=== PATIENT | female | born 1930 | race Caucasian/White ===

== ENCOUNTER 2017-11-24 13:00 | Inpatient (IN) | payer OTHER ==
[~2017-11-24] VITALS: Ht 149.9 cm; Wt 43.5 kg
[2017-11-24 13:05] VITALS: BP 112/68
--- NOTE | 2017-11-24 13:05 | NUR ---
87Y/F BIBA FROM [facility] FOR SUDDEN ONSET OF GENERAL WEAKNESS BEING TREATED FOR A UTI NOT IMPROVING. AAOX4; VSS; BEDRAILS UP X 1, BED DOWN, ER MD AWARE OF PT ATATUS.
[2017-11-24] MEDS ORDERED: VITD1000 PO (13:25)
[2017-11-24] MEDS ORDERED: MULT-1868 PO (13:25)
[2017-11-24] MEDS ORDERED: ONDA4TAB PO (13:25)
[2017-11-24] MEDS ORDERED: DOCU-299 PO (13:25)
[2017-11-24] MEDS ORDERED: GLU1I PO (13:25)
[2017-11-24] MEDS ORDERED: OMEP20TC12 PO (13:25)
[2017-11-24] MEDS ORDERED: METF850T PO (13:25)
[2017-11-24] MEDS ORDERED: TRAV5SOL OP (13:25)
[2017-11-24] MEDS ORDERED: ACET-2619 PO (13:25)
[2017-11-24] MEDS ORDERED: NACL 0.9% 1,000 ML IV ONE (13:30)
[2017-11-24] MEDS ORDERED: CALC-1490 PO (13:34)
[2017-11-24] MEDS ORDERED: SERT25TA PO (13:34)
[2017-11-24] MEDS ORDERED: LISI10TA11 PO (13:34)
[2017-11-24] MEDS ORDERED: FLUC200T PO (13:34)
[2017-11-24 14:12] LABS: BASOPHILS % (AUTO) 0.2 % (0.0-2.0); HEMATOCRIT 37.1 % (36-48); HEMOGLOBIN 11.8 g/dL (12.0-16.0); LYMPHOCYTES # (AUTO) 1.2 K/uL (2.5-16.5); LYMPHOCYTES % (AUTO) 10.7 % (20.5-51.1); MEAN CORPUSCULAR HEMOGLOBIN 30 pg (27-31); MEAN CORPUSCULAR HGB CONC 32 g/dL (33-37); MEAN CORPUSCULAR VOLUME 94.8 fL (80-94); MONOCYTES # (AUTO) 0.3 K/uL (0.8-1.0); MONOCYTES % (AUTO) 2.5 % (1.7-9.3); NEUTROPHILS # (AUTO) 9.7 K/uL (1.8-7.7); NEUTROPHILS % (AUTO) 86.6 % (42.2-75.2); PLATELET COUNT (AUTO) 200 K/uL (140-450); RED BLOOD CELL COUNT(AUTO) 3.91 MIL/uL (4.20-5.40); RED CELL DISTRIBUTION WIDTH 14.3 % (11.6-13.7); WHITE BLOOD COUNT (AUTO) 11.2 K/uL (4.8-10.8)
[2017-11-24 14:30] LABS: PROTHROMBIN TIME 10.9 secs (10.8-13.4)
[2017-11-24 14:42] LABS: ANION GAP 23.5 (8-16); ASPARTATE AMINOTRANSFERASE 6 U/L (15-37); CARBON DIOXIDE 18.5 mmol/L (21-32); CHLORIDE 100 mmol/L (98-107); GLUCOSE 131 mg/dL (74-106); SODIUM SERUM 137 mmol/L (136-145); TOTAL BILIRUBIN 0.6 mg/dL (0.0-1.0)
[2017-11-24 14:55] LABS: UREA NITROGEN, BLOOD 73 mg/dL (7-18)
--- NOTE | 2017-11-24 15:45 | NUR ---
ATTEMPTED TO CATHETERIZE PATIENT WITH NO SUCCESS. UNABLE TO LOCATE URETHRA. ED MD MADE AWARE. OK TO USE PEDIATRIC URINE BAG. URINE BAG APPLIED.
[2017-11-24] MEDS ORDERED: cefTRIAXone 1,000 MG VIAL ONE (17:07)
--- NOTE | 2017-11-24 17:07 | NUR ---
Patient appears to be resting comfortably in bed. Vital Signs within normal limits. Respirations even and unlabored.
[2017-11-24] MEDS: NACL 0.9% 1,000 ML IV SCH (18:39)
[2017-11-24] MEDS ORDERED: ACETAMINOPHEN 325 MG TAB PO PRN (18:40)
[2017-11-24] MEDS ORDERED: ONDANSETRON 4 MG/2 ML VIAL IVP PRN (18:40)
[2017-11-24] MEDS ORDERED: LORazepam 2 MG/ML VIAL IVP PRN (18:40)
[2017-11-24] MEDS ORDERED: HYDROcodone/APAP 5/325 MG 1 TAB TAB PO PRN (18:40)
[2017-11-24] MEDS ORDERED: DEXTROSE 50% 50 ML SYR IVP PRN (18:50)
[2017-11-24] MEDS ORDERED: INSULIN LISPRO SLIDING SCALE 100 UNITS/ML VIAL SUBQ PRN (18:50)
--- NOTE | 2017-11-24 19:06 | NUR ---
Patient will be admitted to care of DR. WHITTINGTON. Admited to TELE. Will go to room 107A. Belongings list completed. Report to ANA HUTCHISON.
[2017-11-24 19:15] VITALS: BP 126/70
--- NOTE | 2017-11-24 19:30 | NUR ---
PT ARRIVED TO [facility] VIA GURNEY [facility]. PT AOX 1-2 SHE IS AN 87YR OLD [place]UTANESE SPEAKING FEMALE, WHO CAME TO ER WITH C/O OF LOWER ABD PAIN, GENERALIZED WEAKNESS AND POOR APPITTE. SON KALYAN AT BEDSIDE TO ASSIST WITH ADMISSION QUESTIONS. SON SAID THAT PT IS FROM [place] AND THAT SHE HAS BEEN HAVING POOR APPETITE ABOUT A MONTH AND HAS LOST A LOT OF WEIGHT. SON KALYAN SAID THAT HIS MOM WOULD REFUSE TO EAT AFTER A FEW BITES OF FOOD AT THE SN[facility] WHERE SHE RESIDES . PT SKIN INTACT EXCEPT FOR LAC 24G. PT AWAKE BUT LETHARGIC.
[2017-11-24] MEDS ORDERED: FLUCONAZOLE 100 MG TAB PO SCH (21:00)
--- NOTE | 2017-11-24 21:00 | NUR ---
DR GUERRERO, NEPHRO DR, AT BEDSIDE FOR CONSULT. DR. GUERRERO ORDERED A MACKENZIE CATHETER. PT URINE COLLECTED AND SENT TO LAB, N/S FLUIDS RUNNING AT 100MLS/HR. DR GUERRERO DOESNT NOT BELIEVE THAT PT IS A CANDIDATE FOR DIALYSIS AT THIS TIME.
[2017-11-24] MEDS: BLOOD GLUCOSE MONITORING 1 DEV DEV FS SCH (21:24)
[2017-11-24 22:38] LABS: ANION GAP 18.5 (8-16); CARBON DIOXIDE 20.4 mmol/L (21-32); CHLORIDE 102 mmol/L (98-107); CREATININE 1.8 mg/dL (0.6-1.3); GLUCOSE 126 mg/dL (74-106); POTASSIUM 4.9 mmol/L (3.5-5.1); SODIUM SERUM 136 mmol/L (136-145)
--- NOTE | 2017-11-24 22:40 | NUR ---
CRITICAL LAB VALUE CALLED IN BY AYAN FROM LAB. DR VELÁSQUEZ DIE CAST SUPERVISOR SERVICE CALLED FROM [facility] AND COVERING DR OJHNSON MADE AWARE OF THE CRITICALLY HIGH BUN, (72) NO NEW ORDERS NOTED AT THIS TIME.
[2017-11-24 22:43] LABS: UREA NITROGEN, BLOOD 72 mg/dL (7-18)
[2017-11-24 23:15] LABS: APPEARANCE,URINE SL CLOUDY (CLEAR); BILIRUBIN,URINE NEGATIVE (NEGATIVE); BLOOD, URINE 2+ (NEGATIVE); COLOR,URINE YELLOW (YELLOW); LEUKOCYTE ESTERASE ,URINE 1+ (NEGATIVE); NITRITE, URINE NEGATIVE (NEGATIVE); UGLUCOSE NEGATIVE (NEGATIVE)
[2017-11-24 23:53] LABS: RBC,URINE 3-10 (FEW) /HPF (0-5)
[2017-11-25 04:24] VITALS: BP 126/70
[2017-11-25] MEDS: NACL 0.9% 1,000 ML IV SCH ×2 (05:15→18:33)
[2017-11-25] MEDS: BLOOD GLUCOSE MONITORING 1 DEV DEV FS SCH ×4 (05:59→20:54)
[2017-11-25] MEDS: PANTOPRAZOLE 40 MG TABEC PO SCH (06:01)
[2017-11-25 06:42] LABS: BASOPHILS % (AUTO) 0.5 % (0.0-2.0); EOSINOPHILS % (AUTO) 0.3 % (0.0-4.0); HEMATOCRIT 31.9 % (36-48); HEMOGLOBIN 10.5 g/dL (12.0-16.0); LYMPHOCYTES # (AUTO) 1.9 K/uL (2.5-16.5); LYMPHOCYTES % (AUTO) 20.5 % (20.5-51.1); MEAN CORPUSCULAR HEMOGLOBIN 31 pg (27-31); MEAN CORPUSCULAR HGB CONC 33 g/dL (33-37); MEAN CORPUSCULAR VOLUME 94.3 fL (80-94); MONOCYTES # (AUTO) 0.6 K/uL (0.8-1.0); MONOCYTES % (AUTO) 6.1 % (1.7-9.3); NEUTROPHILS # (AUTO) 6.7 K/uL (1.8-7.7); NEUTROPHILS % (AUTO) 72.6 % (42.2-75.2); PLATELET COUNT (AUTO) 160 K/uL (140-450); RED BLOOD CELL COUNT(AUTO) 3.38 MIL/uL (4.20-5.40); RED CELL DISTRIBUTION WIDTH 14.4 % (11.6-13.7); WHITE BLOOD COUNT (AUTO) 9.2 K/uL (4.8-10.8)
[2017-11-25 07:11] LABS: ALBUMIN 3.4 g/dL (3.4-5.0); ANION GAP 18.2 (8-16); ASPARTATE AMINOTRANSFERASE 12 U/L (15-37); CARBON DIOXIDE 19.8 mmol/L (21-32); CHLORIDE 105 mmol/L (98-107); CREATININE 1.5 mg/dL (0.6-1.3); GLUCOSE 87 mg/dL (74-106); MAGNESIUM 1.5 mg/dL (1.8-2.4); SODIUM SERUM 139 mmol/L (136-145); TOTAL BILIRUBIN 0.4 mg/dL (0.0-1.0); UREA NITROGEN, BLOOD 59 mg/dL (7-18)
--- NOTE | 2017-11-25 07:25 | NUR ---
RECEIVED PATIENT REPORT FROM NIGHTSHIFT NURSE AT BEDSIDE. PATIENT IS IN SEMI-FOWLERS POSITION. PATIENT DOES NOT SHOW ANY SIGNS OF DISTRESS. NO COMPLAINTS OF PAIN. PATIENT ALERT AND ORIENTED TO NAME. PATIENT HAS A MACKENZIE CATHETER IN PLACE DRAINING URINE. PATIENT HAS AN IV LINE ON LEFT AC 24 G THAT APPEARS RED AND BRUISED. UNABLE TO FLUSH LINE AT THIS TIME. STOPPED PATIENT'S FLUIDS AT THIS TIME. WILL HAVE TO START A NEW IV FOR PATIENT. LOWERED BED OF PATIENT. UPDATED BOARD IN PATIENT'S ROOM. APPROPRIATE SIGNS PLACED OUTSIDE OF ROOM. WILL CONTINUE TO MONITOR PATIENT.
[2017-11-25] MEDS ORDERED: MAG SULF 2000 MG/WATER PREMIX 50 ML IV ONE (07:30)
--- NOTE | 2017-11-25 08:36 | NUR ---
PATIENT REFUSING MEDICATIONS AT THIS TIME. EXPLAINED BENEFITS OF MEDICATIONS BUT PATIENT STILL REFUSED. WILL REOFFER MEDICATIONS.
[2017-11-25] MEDS: ENOXAPARIN 30 MG/0.3 ML SYR SUBQ SCH (09:00)
[2017-11-25] MEDS ORDERED: NON-FORMULARY ITEM (Omeprazole (Omeprazole) 20 MG) PO SCH (09:00)
[2017-11-25] MEDS: SERTRALINE 50 MG TAB PO SCH (09:00)
[2017-11-25] MEDS: DOCUSATE SODIUM 100 MG GELCAP PO SCH (09:00)
[2017-11-25 09:27] VITALS: BP 140/70
[2017-11-25] MEDS: MAGNESIUM SULFATE 1GM in DEXTROSE 5% 100 ML PREMIX IV SCH ×2 (10:06→11:14)
--- NOTE | 2017-11-25 10:08 | NUR ---
PATIENT HAS BEEN SCREENED AND CATEGORIZED HIGH NUTRITION RISK. PATIENT WILL BE SEEN WITHIN 1-2 DAYS OF ADMISSION. 11/25/17 11/26/[address]
--- NOTE | 2017-11-25 10:13 | NUR ---
PATIENT AGREED TO TAKE MEDICATIONS. GAVE THE MEDICATION WITH APPLE SAUCE BUT PATIENT SPIT IT OUT. ABLE TO GIVE PATIENT MAGNESIUM THROUGH IV. WILL CONTINUE TO MONITOR PATIENT.
--- NOTE | 2017-11-25 11:12 | NUR ---
PATIENT RESTING AT THIS TIME. NO DISTRESS NOTED. WILL CONTINUE TO MONITOR PATIENT.
[2017-11-25] MEDS ORDERED: MORPHINE SULFATE 2 MG/ML SYR IVP PRN (11:25)
[2017-11-25 12:00] VITALS: BP 132/72
--- NOTE | 2017-11-25 13:00 | NUR ---
PATIENT SHOWS NO SIGNS OF DISTRESS. WILL CONTINUE TO MONITOR.
--- NOTE | 2017-11-25 13:21 | NUR ---
11/25/17 RD INITIAL ASSESSMENT COMPLETED PLEASE REFER TO NUTRITION ASSESSMENT UNDER CARE ACTIVITY FOR ESTIMATED NUTRITIONAL NEEDS. 1. CONTINUE DIET CCHO 60GM TOLERATED 2. FOLLOW UP ON SWALLOW EVALUATION FOR ALTERED FOOD TEXTURE WITH CCHO 60 GM 3. RECOMMEND GLUCERNA TID WITH MEALS 4. IF PATIENT DOES NOT PASS SWALLOW EVALUATION CONSIDER ENTERAL NUTRITION VIA NASAL GASTRIC TUBE. 5. RD TO FOLLOW-UP 2-3 DAYS, HIGH RISK SILVIA FARR[address] RD
--- NOTE | 2017-11-25 13:22 | NUR ---
CM NOTE PER IE ANNIA GRIER PH# [phone], FOR [facility] AUTH# [id number]
--- NOTE | 2017-11-25 14:43 | NUR ---
SILK SCREEN LAYOUT DRAFTER NOTE [id number] Bedside swallow evaluation completed following clearance by FOSTER Barbosa. Please refer to SILK SCREEN LAYOUT DRAFTER evaluation for full report. Recommend: -Mechanical soft texture + thin liquids, 2/2 decreased PO intake endurance and generalized weakness -Upright at 90 during and 20 min after intake -Small bites/sips, slow rate, alternate bites/sips, straw ok, 1:1 feeder assistance -Consideration for NGT if pt is unable to meet nutrition/hydration needs by mouth -No further SILK SCREEN LAYOUT DRAFTER intervention indicated. PVE w/FOSTER Barbosa re: results and recommendations. SILK SCREEN LAYOUT DRAFTER reported pt c/o 10/10 pain at site of muñoz catheter and was requesting pain medication, RN voiced understanding. G8996: CI G8997: CI G8998: CI Swallow NOMS 4
--- NOTE | 2017-11-25 15:58 | NUR ---
PATIENT ASLEEP AT THIS TIME. WILL CONTINUE TO MONITOR PATIENT.
[2017-11-25 16:00] VITALS: BP 125/68
--- NOTE | 2017-11-25 16:41 | NUR ---
Casino Runner Note: Per Alyson from [facility] , patient is on a 7 day bed hold.
--- NOTE | 2017-11-25 19:20 | NUR ---
GAVE REPORT TO NIGHTSHIFT NURSE. PATIENT IN STABLE CONDITION.
--- NOTE | 2017-11-25 19:20 | NUR ---
RECEIVED REPORT FROM HETAL CAMACHO AT BEDSIDE FOR CONTINUITY OF CARE. PT IN STABLE CONDITION. PT IN LOW BED ALL FALLS PRECAUTIONS IN PLACE AND N/S RUNNING AT 70 VIA 24G ON LEFT F/A. PT RESTING BUT ALERT TO NAME NO S/S OF PAIN OR DISTRESS NOTED. SON AT BEDSIDE.
[2017-11-25 20:00] VITALS: BP 114/60
--- NOTE | 2017-11-25 20:20 | NUR ---
8PM V/S FOLLOWS T 98.1 P 76 R 20 B/P 114/60 R 20. PT HAS F/C IN TACT AND DRAINED 200MLS OF LIGHT YELLOW URINE.
--- NOTE | 2017-11-25 20:55 | NUR ---
PT REFUSE GLUCOSE MONITORING SAYING THROUGH A KOREAN TRANSLATER THAT SHE IS NOT A DIABETIC AND SHE DOESNT WANT A FINGERSTICK CHEC.K
[2017-11-25] MEDS ORDERED: FLUCONAZOLE 100 MG TAB PO SCH (21:00)
[2017-11-25] MEDS: HYDROcodone/APAP 5/325 MG 1 TAB TAB PO PRN (22:07)
[2017-11-26] VITALS: BP 132/71
--- NOTE | 2017-11-26 00:30 | NUR ---
PT IN BED RESTING, WITH POSITIVE EFFECT OF PRN NORCO. PT STATES THAT SHE IS FEELING BETTER.V/S FOLLOWS T 98.1 P 76 R 20 B/P 114/60 02 99% WITH R/A.
[2017-11-26 04:00] VITALS: BP 128/63
[2017-11-26] MEDS: HYDROcodone/APAP 5/325 MG 1 TAB TAB PO PRN ×2 (04:16→09:15)
[2017-11-26] MEDS: PANTOPRAZOLE 40 MG TABEC PO SCH (06:13)
[2017-11-26] MEDS: BLOOD GLUCOSE MONITORING 1 DEV DEV FS SCH ×3 (06:17→16:30)
--- NOTE | 2017-11-26 07:15 | NUR ---
REPORT GIVEN TO BARRON HUTCHISON DAYSHIFT NURSE AT BEDSIDE FOR TRANSFER OF CARE, PT IN STABLE CONDITION
--- NOTE | 2017-11-26 07:23 | NUR ---
RECEIVED PT FROM HTML DEVELOPER NURSE, DEEPA, PT IS AWAKE AND LYING ON THE BED WITH BED IN LOW POSITION AND SIDE RAILS ARE UP, BED ALARM ACTIVATED. PT HAS AN IV LINE ON THE RT FA G. 24 WITH NS RUNNING AT 70ML/HR, INTACT. PT VERBALIZED PAIN AND WILL MEDICATE FOR A PAIN LEVEL OF 6/10. PT HAS NO OTHER SIGN OF DISTRESS BESIDE THE PAIN. WILL CONTINUE TO MONITOR.
[2017-11-26 07:28] LABS: BASOPHILS % (AUTO) 0.4 % (0.0-2.0); EOSINOPHILS # (AUTO) 0.1 K/uL (0-0.4); EOSINOPHILS % (AUTO) 1.4 % (0.0-4.0); HEMATOCRIT 29.7 % (36-48); HEMOGLOBIN 9.9 g/dL (12.0-16.0); LYMPHOCYTES % (AUTO) 27.2 % (20.5-51.1); MEAN CORPUSCULAR HEMOGLOBIN 32 pg (27-31); MEAN CORPUSCULAR HGB CONC 33 g/dL (33-37); MEAN CORPUSCULAR VOLUME 94.5 fL (80-94); MONOCYTES # (AUTO) 0.4 K/uL (0.8-1.0); MONOCYTES % (AUTO) 5.7 % (1.7-9.3); NEUTROPHILS # (AUTO) 4.8 K/uL (1.8-7.7); NEUTROPHILS % (AUTO) 65.3 % (42.2-75.2); PLATELET COUNT (AUTO) 133 K/uL (140-450); RED BLOOD CELL COUNT(AUTO) 3.14 MIL/uL (4.20-5.40); RED CELL DISTRIBUTION WIDTH 14.1 % (11.6-13.7); WHITE BLOOD COUNT (AUTO) 7.4 K/uL (4.8-10.8)
--- NOTE | 2017-11-26 07:30 | NUR ---
PT IS AWAKE AND VITAL SIGNS TAKEN AND IS STABLE. WILL MEDICATE PT FOR THE PAIN RATE OF 6/10. FALL PRECAUTION ENFORCED. WILL MONITOR.
[2017-11-26 08:00] VITALS: BP 134/65
[2017-11-26 08:11] LABS: MAGNESIUM 1.8 mg/dL (1.8-2.4)
[2017-11-26 08:15] LABS: ANION GAP 12.3 (8-16); CARBON DIOXIDE 21.5 mmol/L (21-32); CHLORIDE 105 mmol/L (98-107); CREATININE 1.1 mg/dL (0.6-1.3); GLUCOSE 93 mg/dL (74-106); POTASSIUM 3.8 mmol/L (3.5-5.1); SODIUM SERUM 135 mmol/L (136-145); UREA NITROGEN, BLOOD 37 mg/dL (7-18)
[2017-11-26] MEDS: NACL 0.9% 1,000 ML IV SCH (08:51)
[2017-11-26] MEDS ORDERED: SODIUM BICARBONATE 650 MG TAB PO SCH (09:00)
[2017-11-26] MEDS: ENOXAPARIN 30 MG/0.3 ML SYR SUBQ SCH (09:00)
[2017-11-26] MEDS: DOCUSATE SODIUM 100 MG GELCAP PO SCH (09:13)
[2017-11-26] MEDS: SERTRALINE 50 MG TAB PO SCH (09:14)
--- NOTE | 2017-11-26 09:15 | NUR ---
PT IS AWAKE AND SEATED ON THE BED, BP CHECK TAKEN AND MEDICATIONS GIVEN. LOVENOX WAS HOLD OFF PER PT'S PLATELET IS LOW. PT TOLERATED THE MEDICATIONS AND NO SIGN OF DISTRESS NOTED. WILL MONITOR.
[2017-11-26 12:00] VITALS: BP 129/62
[2017-11-26] MEDS ORDERED: CEPH250C16 PO (15:03)
--- NOTE | 2017-11-26 15:06 | NUR ---
PATIENT HAS A DISCHARGE ORDER FROM DR WHITTINGTON CALLED [facility] AND SPOKE WITH YOON AND PATIENT CAN GO TO ROOM 30 BED A.
--- NOTE | 2017-11-26 15:09 | NUR ---
ACKNOWLEDGED A DISCHARGED ORDER FROM DR. WHITTINGTON FOR THE PT TO GO BACK TO [facility]. WILL FACILITATE DISCHARGE ORDER.
--- NOTE | 2017-11-26 15:35 | NUR ---
[facility] WITH [facility] [employer] INSTRUCTOR TIME 1900 PHILIPPE HUTCHISON AWARE OF IT.
[2017-11-26 16:00] VITALS: BP 143/65
--- NOTE | 2017-11-26 19:15 | NUR ---
RECEIVED REPORT FROM DAY SHIFT NURSE AT BEDSIDE. PT IN STABLE CONDITION. PT HAS L FA IV WITH NS AT 70ML/GR. IV PATENT AND INTACT. PT ON RA. SKIN IS INTACT. NO C/O PAIN AT THIS TIME. BED LOCKED, LOW POSITION AND SIDE RAILS UP X2. BOARD UPDATED. PT TO BE DISCHARGED THIS EVENING. WILL CONTINUE TO MONITOR PT.
--- NOTE | 2017-11-26 19:15 | NUR ---
ENDORSED PT TO MACHINE I TRIMMER NURSE, CHETNA, FOR THE DISCHARGE PROCESS. DISCHARGE PAPERS HANDED TO MACHINE I TRIMMER NURSE AND INFORMED THAT REPORT WAS GIVEN TO BRYAN ARELLANO IN [facility] . INFORMED MACHINE I TRIMMER NURSE TO FACILITATE DISCHARGE PROCESS OF PT. PT IS STABLE AT THIS TIME
[2017-11-26 20:00] VITALS: BP 151/71
--- NOTE | 2017-11-26 20:28 | NUR ---
TRANSPORTER HERE TO TAKE PT BACK TO [facility]. PT VS STABLE.
[2017-11-26] MEDS ORDERED: LATANOPROST 0.005% OP 2.5 ML BTL OP SCH (21:00)
== END 2017-11-26 20:28 | DRG 469 ==
LOC: MED 13:00 → MTU 18:39
PROVIDERS: ADMIT Hospitalist; ATTEND Hospitalist
DX: N17.0 Acute kidney failure with tubular necrosis (principal); G93.41 Metabolic encephalopathy; E87.2 Acidosis; L03.116 Cellulitis of left lower limb; E11.22 Type 2 diabetes mellitus with diabetic chronic kidney disease; E83.42 Hypomagnesemia; N39.0 Urinary tract infection, site not specified; E86.0 Dehydration; D64.9 Anemia, unspecified; F32.9 Major depressive disorder, single episode, unspecified; I12.9 Hypertensive chronic kidney disease with stage 1 through stage 4 chronic kidney disease, or unspecified chronic kidney disease; N18.9 Chronic kidney disease, unspecified; K21.9 Gastro-esophageal reflux disease without esophagitis; M06.9 Rheumatoid arthritis, unspecified; Z79.899 Other long term (current) drug therapy; Z79.84 Long term (current) use of oral hypoglycemic drugs; Z83.3 Family history of diabetes mellitus; Z82.49 Family history of ischemic heart disease and other diseases of the circulatory system
CPT/HCPCS: 36415; 71045; 76770; 80048; 80053; 81001; 82550; 82728; 82948; 83540; 83605; 83735; 83880; 84300; 84484; 85025; 85610; 85730; 87040; 87081; 87086; 92610; 93005; 96361; 96365; 97110; 97140; 97530; 97799; 99285; C1758; J0696; J1650; J2270; J7030; J7060; Q0092